=== PATIENT | female | born 1970 | race Caucasian/White ===

== ENCOUNTER 2023-10-11 23:35 | Observation (INO) | payer OTHER ==
[2023-10-11 23:50] VITALS: BMI 26.5
[2023-10-12] MEDS ORDERED: ONDANSETRON 4 MG/2 ML VIAL ONE (00:07)
[2023-10-12] MEDS ORDERED: FAMOTIDINE 20 MG/50 ML IVPB 20 MG/50 ML MG IVPB ONE (00:07)
[2023-10-12] MEDS ORDERED: ACETAMINOPHEN INJECTION 100 ML IVPB ONE (00:07)
[2023-10-12] MEDS: ACETAMINOPHEN 1000 MG/100 ML BAG IVPB ONE (00:43)
[2023-10-12] MEDS: FAMOTIDINE 20 MG/50 ML IVPB 20 MG/50 ML MG IVPB ONE (00:43)
[2023-10-12] MEDS: LACTATED RINGERS SOLUTION 1000 ML INFUS.BAG IV ONE (00:43)
[2023-10-12] MEDS: ONDANSETRON 4 MG/2 ML VIAL IVPUSH ONE (00:43)
[2023-10-12 00:55] LABS: INR 1.1 (0.83-1.09); PROTHROMBIN TIME (PATIENT) 12.4 SEC (9.7-13.0)
[2023-10-12 00:57] LABS: ACTIVATED PTT 23.7 SECONDS (25.2-36.5)
[2023-10-12 01:01] LABS: BASO % 2.9 % (0-2.0); EOS % 0.2 % (0-4.5); HEMATOCRIT 40.8 % (32.4-45.2); HEMOGLOBIN 14.1 GM/dL (10.7-15.3); LYMPH % 16.2 % (8-40); MCH 29.9 pg (25.7-33.7); MCHC 34.4 g/dl (32.0-36.0); MEAN CELL VOLUME 86.8 fl (80-96); MEAN PLT VOLUME 7.4 fl (7.5-11.1); MONO % 7.7 % (3.8-10.2); PLATELET COUNT 278 10^3/uL (134-434); RBC 4.71 M/mm3 (3.60-5.2); RDW 13.9 % (11.6-15.6); WHITE BLOOD COUNT 13.2 K/mm3 (4.0-10.0)
[2023-10-12 01:08] LABS: POTASSIUM 4.1 mmol/L (3.5-5.1)
[2023-10-12 01:11] LABS: MAGNESIUM 2.2 mg/dL (1.8-2.4)
[2023-10-12 01:12] LABS: ALBUMIN 3.9 g/dl (3.4-5.0)
[2023-10-12 01:14] LABS: BLOOD UREA NITROGEN 18.3 mg/dL (7-18); CREATININE 0.7 mg/dL (0.55-1.3)
[2023-10-12 01:16] LABS: TOT PROT 8.1 g/dl (6.4-8.2)
[2023-10-12 01:17] LABS: BILIRUBIN,TOTAL 0.7 mg/dL (0.2-1)
[2023-10-12] MEDS ORDERED: MAG HYDROX/AL HYDROX/SIMETH 30 ML UNIT-DOSE CUP ONE ×4 (02:26→17:20)
[2023-10-12] MEDS ORDERED: morphine SULFATE 4 MG/ML VIAL ONE (02:26)
[2023-10-12] MEDS: morphine CARPU-JECT 4 MG/1 ML DISP.SYRIN IVPUSH ONE (02:30)
[2023-10-12] MEDS: MAG HYDROX/AL HYDROX/SIMETH 30 ML UNIT-DOSE CUP PO ONE (02:30)
[2023-10-12] MEDS ORDERED: ASPIRIN 81 MG CHEWABLE TABLETS ONE ×2 (03:12→13:09)
[2023-10-12] MEDS: ASPIRIN 81 MG CHEWABLE TABLETS PO ONE (03:39)
[2023-10-12] MEDS ORDERED: ACETAMINOPHEN 1000 MG/100 ML BAG IVPB PRN (04:43)
[2023-10-12] MEDS ORDERED: PANTOPRAZOLE SODIUM 40 MG/100 ML BAG IVPB ONE (04:57)
[2023-10-12] MEDS ORDERED: ONDANSETRON 4 MG/2 ML VIAL IVPUSH PRN (05:00)
[2023-10-12] MEDS: PANTOPRAZOLE SODIUM 40 MG VIAL IVPUSH SCH (05:17)
[2023-10-12] MEDS: SODIUM CHLORIDE 1,000 ML IV SCH (05:17)
[2023-10-12 05:50] LABS: POTASSIUM 3.8 mmol/L (3.5-5.1)
[2023-10-12 05:52] LABS: ALBUMIN 3.5 g/dl (3.4-5.0); BLOOD UREA NITROGEN 13.2 mg/dL (7-18); CALCIUM 8.4 mg/dL (8.5-10.1); MAGNESIUM 2.3 mg/dL (1.8-2.4)
[2023-10-12 05:55] LABS: PHOSPHOROUS 3.1 mg/dL (2.5-4.9)
[2023-10-12 05:56] LABS: CREATININE 0.7 mg/dL (0.55-1.3)
[2023-10-12 05:57] LABS: BILIRUBIN,TOTAL 0.5 mg/dL (0.2-1); TOT PROT 7.3 g/dl (6.4-8.2)
[2023-10-12 06:08] LABS: BASO % 0.8 % (0-2.0); HEMATOCRIT 39.6 % (32.4-45.2); HEMOGLOBIN 13.4 GM/dL (10.7-15.3); LYMPH % 21.6 % (8-40); MCH 29.7 pg (25.7-33.7); MCHC 33.9 g/dl (32.0-36.0); MEAN CELL VOLUME 87.6 fl (80-96); MEAN PLT VOLUME 7.4 fl (7.5-11.1); MONO % 6.2 % (3.8-10.2); NEUT % 71.4 % (42.8-82.8); PLATELET COUNT 246 10^3/uL (134-434); RBC 4.51 M/mm3 (3.60-5.2); RDW 13.8 % (11.6-15.6); WHITE BLOOD COUNT 12.2 K/mm3 (4.0-10.0)
[2023-10-12] MEDS: MAG HYDROX/AL HYDROX/SIMETH 30 ML UNIT-DOSE CUP PO SCH (06:30)
[2023-10-12 07:02] LABS: METHADONE, UR NEGATIVE (NEGATIVE); PHENCYCLIDINE,URINE NEGATIVE (NEGATIVE); URINE AMPHETAMINES NEGATIVE (NEGATIVE); URINE BENZODIAZEPINES NEGATIVE (NEGATIVE)
[2023-10-12 07:03] LABS: COCAINE, UR NEGATIVE (NEGATIVE); URINE BARBITURATES NEGATIVE (NEGATIVE)
[2023-10-12 07:07] LABS: OPIATES, URI POSITIVE (NEGATIVE)
[2023-10-12 08:24] LABS: PH,URINE 6.5 (5.0-8.0); URINE APPEARANCE CLEAR; URINE BILIRUBIN NEGATIVE (NEGATIVE); URINE COLOR YELLOW; URINE GLUCOSE (UA) NEGATIVE (NEGATIVE); URINE KETONE NEGATIVE (NEGATIVE); URINE NITRITE NEGATIVE (NEGATIVE); URINE PROTEIN NEGATIVE (NEGATIVE); URINE UROBILINOGEN 0.2 mg/dL (0.2-1.0)
[2023-10-12 08:25] LABS: URINE LEUK ESTERASE NEGATIVE (NEGATIVE)
[2023-10-12] MEDS: oxyCODONE HCL 5 MG TABLET PO SCH (09:14)
[2023-10-12] MEDS ORDERED: PANTOPRAZOLE SODIUM 40 MG VIAL ONE (09:20)
[2023-10-12] MEDS ORDERED: ENOXAPARIN NA (PORCINE) 40 MG/0.4 ML DISP.SYRIN SQ ONE (09:20)
[2023-10-12] MEDS ORDERED: buPROPion HCL 100 MG TABLET ONE (09:23)
[2023-10-12] MEDS: ENOXAPARIN NA (PORCINE) 40 MG/0.4 ML DISP.SYRIN SQ SCH (09:23)
[2023-10-12] MEDS ORDERED: FLUoxetine HCL 10 MG TABLET PO SCH (10:00)
[2023-10-12] MEDS: RAMIPRIL 2.5 MG CAPSULE PO SCH (10:28)
[2023-10-12] MEDS: FLUOXETINE HCL 40 MG, FLUOXETINE HCL 10 MG PO SCH (10:28)
[2023-10-12] MEDS: ASPIRIN 81 MG CHEWABLE TABLETS PO SCH (13:13)
[2023-10-12] MEDS ORDERED: oxyCODONE HCL 5 MG TABLET ONE (14:56)
[2023-10-12] MEDS: ROSUVASTATIN CA 20 MG TABLET PO SCH (23:34)
[2023-10-13 08:01] LABS: BASO % 0.6 % (0-2.0); EOS % 1.1 % (0-4.5); HEMATOCRIT 37.5 % (32.4-45.2); HEMOGLOBIN 12.8 GM/dL (10.7-15.3); LYMPH % 48.5 % (8-40); MCH 30.4 pg (25.7-33.7); MCHC 34.1 g/dl (32.0-36.0); MEAN PLT VOLUME 7.6 fl (7.5-11.1); NEUT % 41.8 % (42.8-82.8); PLATELET COUNT 228 10^3/uL (134-434); RBC 4.21 M/mm3 (3.60-5.2); RDW 13.6 % (11.6-15.6)
[2023-10-13 08:18] LABS: POTASSIUM 3.7 mmol/L (3.5-5.1)
[2023-10-13 08:25] LABS: ALBUMIN 3.1 g/dl (3.4-5.0); BLOOD UREA NITROGEN 12.8 mg/dL (7-18); CALCIUM 8.4 mg/dL (8.5-10.1); CREATININE 0.6 mg/dL (0.55-1.3)
[2023-10-13 08:27] LABS: TOT PROT 6.4 g/dl (6.4-8.2)
[2023-10-13 08:47] LABS: BILIRUBIN,TOTAL 0.6 mg/dL (0.2-1)
[2023-10-13] MEDS: PANTOPRAZOLE 20 MG TABLET PO SCH (09:51)
[2023-10-13 14:33] VITALS: BP 113/83; PULSE 68; RESP 18; TEMP 98.1
== END 2023-10-13 17:29 | disposition home or self-care (01) ==
LOC: JER 23:35 → UNDOADMOB 10-12 03:12 → JERBED 10-12 03:12 → OBSVTOIN 10-12 05:01 → INTOOBSV 10-12 05:01 → JERBED 10-12 09:35 → J4W 10-12 19:38
PROVIDERS: ADMIT Internal Medicine; ATTEND Internal Medicine
PROC: 3E0337Z Introduction of Electrolytic and Water Balance Substance into Peripheral Vein, Percutaneous Approach (ICD-10-PCS; principal; 2023-10-12)
PROC: 3E0337Z Introduction of Electrolytic and Water Balance Substance into Peripheral Vein, Percutaneous Approach (ICD-10-PCS; 2023-10-12)
PROC: 3E033NZ Introduction of Analgesics, Hypnotics, Sedatives into Peripheral Vein, Percutaneous Approach (ICD-10-PCS; 2023-10-12)
PROC: 3E033GC Introduction of Other Therapeutic Substance into Peripheral Vein, Percutaneous Approach (ICD-10-PCS; 2023-10-12)
DX: K29.70 Gastritis, unspecified, without bleeding (principal); R77.8 Other specified abnormalities of plasma proteins; M54.9 Dorsalgia, unspecified; R07.9 Chest pain, unspecified; R10.13 Epigastric pain; M54.2 Cervicalgia; Z87.891 Personal history of nicotine dependence
CPT/HCPCS: 0241U-QW; 36415; 71045-TC-FY; 74177-TC; 76705-TC; 80053; 80061; 80307; 81003; 83605; 83690; 83735; 84100; 84443; 84484; 85025; 85610; 85730; 86850; 86900; 86901; 87086; 93005; 93010; 93306-TC; 96361; 96365; 96372; 96375; 99285-25; G0378; J0131; Q9967

== ENCOUNTER 2023-11-26 12:05 | Observation (INO) | payer OTHER ==
[2023-11-26 12:27] VITALS: BMI 30.7
[2023-11-26] MEDS ORDERED: MAG HYDROX/AL HYDROX/SIMETH 30 ML UNIT-DOSE CUP ONE (13:23)
[2023-11-26] MEDS ORDERED: ONDANSETRON 4 MG/2 ML VIAL ONE (13:24)
[2023-11-26] MEDS ORDERED: FAMOTIDINE 20 MG/50 ML IVPB 20 MG/50 ML MG IVPB ONE (13:24)
[2023-11-26 13:28] LABS: BASO % 0.5 % (0-2.0); EOS % 0.2 % (0-4.5); HEMATOCRIT 41.8 % (32.4-45.2); HEMOGLOBIN 14.4 GM/dL (10.7-15.3); MCH 30.2 pg (25.7-33.7); MCHC 34.5 g/dl (32.0-36.0); MEAN CELL VOLUME 87.4 fl (80-96); MEAN PLT VOLUME 7.8 fl (7.5-11.1); MONO % 3.5 % (3.8-10.2); NEUT % 70.8 % (42.8-82.8); PLATELET COUNT 302 10^3/uL (134-434); RBC 4.78 M/mm3 (3.60-5.2); RDW 13.6 % (11.6-15.6); WHITE BLOOD COUNT 14.6 K/mm3 (4.0-10.0)
[2023-11-26 13:34] LABS: INR 0.97 (0.83-1.09); PROTHROMBIN TIME (PATIENT) 11.2 SEC (9.7-13.0)
[2023-11-26] MEDS: MAG HYDROX/AL HYDROX/SIMETH 30 ML UNIT-DOSE CUP PO ONE (13:36)
[2023-11-26 13:37] LABS: ACTIVATED PTT 29.1 SECONDS (25.2-36.5)
[2023-11-26] MEDS: FAMOTIDINE 20 MG/50 ML IVPB 20 MG/50 ML MG IVPB ONE (13:37)
[2023-11-26] MEDS: ONDANSETRON 4 MG/2 ML VIAL IVPUSH ONE (13:37)
[2023-11-26 13:46] LABS: POTASSIUM 4.3 mmol/L (3.5-5.1)
[2023-11-26 13:48] LABS: ALBUMIN 4.2 g/dl (3.4-5.0); CALCIUM 9.7 mg/dL (8.5-10.1)
[2023-11-26 13:49] LABS: BLOOD UREA NITROGEN 18.6 mg/dL (7-18)
[2023-11-26 13:53] LABS: BILIRUBIN,TOTAL 0.6 mg/dL (0.2-1); TOT PROT 7.8 g/dl (6.4-8.2)
[2023-11-26 14:06] LABS: CREATININE 0.9 mg/dL (0.55-1.3)
[2023-11-26] MEDS ORDERED: oxyCODONE HCL 5 MG TABLET ONE (14:32)
[2023-11-26] MEDS: oxyCODONE HCL 5 MG TABLET PO ONE (14:33)
[2023-11-26] MEDS: SODIUM CHLORIDE 0.9% 500 ML INFUS.BAG IV ONE (15:57)
[2023-11-26 15:59] LABS: EPI CELLS 19 /uL (0-25.1); HYALINE CASTS 2 /uL (0-3.1); URINE APPEARANCE CLEAR; URINE BACTERIA 273 /uL (0-1359); URINE BILIRUBIN NEGATIVE (NEGATIVE); URINE COLOR YELLOW; URINE GLUCOSE (UA) 1+ (NEGATIVE); URINE KETONE 3+ (NEGATIVE); URINE LEUK ESTERASE NEGATIVE (NEGATIVE); URINE NITRITE NEGATIVE (NEGATIVE); URINE PROTEIN TRACE (NEGATIVE); URINE RBC 28 /uL (0-23.9); URINE UROBILINOGEN 0.2 mg/dL (0.2-1.0); URINE WBC 19 /uL (0-25.8)
[2023-11-26 16:50] LABS: LACTIC ACID 2.1 mmol/L (0.4-2.0)
[2023-11-26] MEDS ORDERED: TRIMETHOBENZAMIDE HCL 200MG/2ML INJ IM ONE (19:07)
[2023-11-26] MEDS: TRIMETHOBENZAMIDE HCL 200MG/2ML INJ IM ONE (19:22)
[2023-11-27] MEDS ORDERED: oxyCODONE HCL 5 MG TABLET ONE (01:57)
[2023-11-27] MEDS: oxyCODONE HCL 5 MG TABLET PO SCH (02:06)
[2023-11-27] MEDS: LACTATED RINGERS SOLUTION 1,000 ML/1,000 ML INFUS.BAG IV SCH (02:07)
[2023-11-27 06:56] LABS: HEMATOCRIT 40.8 % (32.4-45.2); HEMOGLOBIN 13.8 GM/dL (10.7-15.3); MCH 29.7 pg (25.7-33.7); MCHC 33.7 g/dl (32.0-36.0); MEAN CELL VOLUME 88.2 fl (80-96); MEAN PLT VOLUME 7.2 fl (7.5-11.1); PLATELET COUNT 263 10^3/uL (134-434); RBC 4.63 M/mm3 (3.60-5.2); RDW 13.5 % (11.6-15.6); WHITE BLOOD COUNT 11.1 K/mm3 (4.0-10.0)
[2023-11-27 07:47] LABS: POTASSIUM 3.3 mmol/L (3.5-5.1)
[2023-11-27 07:49] LABS: CALCIUM 8.9 mg/dL (8.5-10.1)
[2023-11-27 07:50] LABS: BLOOD UREA NITROGEN 11.3 mg/dL (7-18); MAGNESIUM 1.9 mg/dL (1.8-2.4)
[2023-11-27 07:53] LABS: CREATININE 0.5 mg/dL (0.55-1.3)
[2023-11-27 07:54] LABS: BILIRUBIN,TOTAL 0.4 mg/dL (0.2-1); TOT PROT 7.8 g/dl (6.4-8.2)
[2023-11-27] MEDS: TRIMETHOBENZAMIDE HCL 200MG/2ML INJ IM PRN (10:21)
[2023-11-27] MEDS: FLUoxetine HCL 20 MG CAPSULE PO SCH (12:00)
[2023-11-27] MEDS: ENOXAPARIN NA (PORCINE) 40 MG/0.4 ML DISP.SYRIN SQ SCH (12:36)
[2023-11-27] MEDS: PANTOPRAZOLE SODIUM 40 MG VIAL IVPUSH SCH (12:36)
[2023-11-27] MEDS: POLYETHYLENE GLYCOL (HEALTHYLAX) 3350 17 GM PACKET PO SCH (12:36)
[2023-11-27] MEDS: POTASSIUM CHLORIDE ORAL LIQUID 20 MEQ/15 ML PO ONE (13:27)
[2023-11-27] MEDS: MAG HYDROX/AL HYDROX/SIMETH 30 ML UNIT-DOSE CUP PO PRN (14:46)
[2023-11-27] MEDS: SENNOSIDES/DOCUSATE COMBO (SENNA PLUS) TABLET (UD) PO SCH (22:09)
[2023-11-28] MEDS: MELATONIN 5 MG TABLETS PO PRN (04:06)
[2023-11-28] MEDS: LORazepam 2 MG/ML SDV VIAL IVPUSH ONE (09:45)
[2023-11-28] MEDS ORDERED: LORazepam 0.5 MG TABLET PO PRN (10:53)
[2023-11-28] MEDS: cloNIDine HCL 0.1 MG TABLET PO PRN (11:33)
[2023-11-28 12:33] LABS: URINE APPEARANCE CLEAR; URINE BILIRUBIN NEGATIVE (NEGATIVE); URINE COLOR YELLOW; URINE GLUCOSE (UA) NEGATIVE (NEGATIVE); URINE KETONE TRACE (NEGATIVE); URINE LEUK ESTERASE NEGATIVE (NEGATIVE); URINE NITRITE NEGATIVE (NEGATIVE); URINE PROTEIN NEGATIVE (NEGATIVE); URINE UROBILINOGEN 0.2 mg/dL (0.2-1.0)
[2023-11-28 12:56] LABS: URINE BARBITURATES NEGATIVE (NEGATIVE)
[2023-11-28 12:57] LABS: COCAINE, UR NEGATIVE (NEGATIVE); METHADONE, UR NEGATIVE (NEGATIVE); OPIATES, URI NEGATIVE (NEGATIVE); PHENCYCLIDINE,URINE NEGATIVE (NEGATIVE); URINE AMPHETAMINES NEGATIVE (NEGATIVE); URINE BENZODIAZEPINES NEGATIVE (NEGATIVE)
[2023-11-28] MEDS: amLODIPine BESYLATE 5 MG TABLET (FP) PO SCH (14:34)
[2023-11-29 08:21] LABS: BASO % 0.2 % (0-2.0); EOS % 0.6 % (0-4.5); HEMATOCRIT 37.6 % (32.4-45.2); HEMOGLOBIN 12.9 GM/dL (10.7-15.3); LYMPH % 38.9 % (8-40); MCHC 34.4 g/dl (32.0-36.0); MEAN CELL VOLUME 87.3 fl (80-96); MEAN PLT VOLUME 7.3 fl (7.5-11.1); MONO % 9.9 % (3.8-10.2); NEUT % 50.4 % (42.8-82.8); PLATELET COUNT 264 10^3/uL (134-434); RBC 4.31 M/mm3 (3.60-5.2); RDW 13.5 % (11.6-15.6); WHITE BLOOD COUNT 7.7 K/mm3 (4.0-10.0)
[2023-11-30 05:50] VITALS: TEMP 98
[2023-11-30 07:23] LABS: HEMATOCRIT 35.4 % (32.4-45.2); HEMOGLOBIN 12.3 GM/dL (10.7-15.3); MCH 30.4 pg (25.7-33.7); MCHC 34.7 g/dl (32.0-36.0); MEAN CELL VOLUME 87.8 fl (80-96); MEAN PLT VOLUME 6.9 fl (7.5-11.1); PLATELET COUNT 245 10^3/uL (134-434); RBC 4.03 M/mm3 (3.60-5.2); RDW 13.4 % (11.6-15.6); WHITE BLOOD COUNT 7.9 K/mm3 (4.0-10.0)
[2023-11-30 07:42] LABS: POTASSIUM 3.6 mmol/L (3.5-5.1)
[2023-11-30 07:44] LABS: CALCIUM 8.7 mg/dL (8.5-10.1)
[2023-11-30 07:45] LABS: BLOOD UREA NITROGEN 20.3 mg/dL (7-18)
[2023-11-30 07:48] LABS: CREATININE 0.8 mg/dL (0.55-1.3)
[2023-11-30 14:55] VITALS: BP 115/56; PULSE 80; RESP 17
== END 2023-11-30 14:15 | disposition home health service (06) ==
LOC: JER 12:05 → JERBED 19:52 → J7W 11-27 06:52
PROVIDERS: ADMIT Internal Medicine; ATTEND Nurse Practitioner
PROC: 3E023GC Introduction of Other Therapeutic Substance into Muscle, Percutaneous Approach (ICD-10-PCS; principal; 2023-11-26)
PROC: 3E033GC Introduction of Other Therapeutic Substance into Peripheral Vein, Percutaneous Approach (ICD-10-PCS; 2023-11-26)
PROC: 3E0337Z Introduction of Electrolytic and Water Balance Substance into Peripheral Vein, Percutaneous Approach (ICD-10-PCS; 2023-11-26)
PROC: 3E033NZ Introduction of Analgesics, Hypnotics, Sedatives into Peripheral Vein, Percutaneous Approach (ICD-10-PCS; 2023-11-26)
DX: K29.70 Gastritis, unspecified, without bleeding (principal); F41.8 Other specified anxiety disorders; F12.90 Cannabis use, unspecified, uncomplicated; G89.29 Other chronic pain; R10.13 Epigastric pain; R31.9 Hematuria, unspecified; I45.81 Long QT syndrome; E87.6 Hypokalemia; R06.4 Hyperventilation; I10 Essential (primary) hypertension; K76.0 Fatty (change of) liver, not elsewhere classified; R11.2 Nausea with vomiting, unspecified; E78.5 Hyperlipidemia, unspecified; R45.1 Restlessness and agitation; R00.0 Tachycardia, unspecified; Z87.891 Personal history of nicotine dependence
CPT/HCPCS: 36415; 71045-TC-FY; 74177-TC; 80048; 80053; 80307; 81003; 82962; 83605; 83690; 83735; 84132; 84484; 84703; 85025; 85027; 85610; 85730; 86850; 86900; 86901; 87086; 93005; 93010; 96361; 96365; 96372; 96375; 99285-25; G0378; Q9967